=== PATIENT | male | born 1940 ===

== ENCOUNTER 2024-08-16 16:19 | Inpatient (IN) | payer MEDICARE ==
[~2024-08-16] VITALS: Ht 170.2 cm; Wt 89.9 kg
[2024-08-16] MEDS: IV NS 1000 ML 1,000 ML IV ONE (16:45)
[2024-08-16] MEDS ORDERED: SERT25TA PO (16:48)
[2024-08-16] MEDS ORDERED: CLOP75TA15 PO (16:48)
[2024-08-16] MEDS ORDERED: CRAN1CAP5 PO (16:48)
[2024-08-16] MEDS ORDERED: FURO-151 PO (16:48)
[2024-08-16] MEDS ORDERED: MELA5TAB2 PO (16:48)
[2024-08-16] MEDS ORDERED: METO-356 PO (16:48)
[2024-08-16] MEDS ORDERED: APIX2.5T PO (16:48)
[2024-08-16] MEDS ORDERED: CHOL10005 PO (16:48)
[2024-08-16] MEDS ORDERED: ALLO100T56 PO (16:48)
[2024-08-16] MEDS ORDERED: LOSA25TA27 PO (16:48)
[2024-08-16 17:06] LABS: BASOPHILS % (AUTO) 0.5 % (0.0-2.0); EOSINOPHILS # (AUTO) 0.1 K/uL (0.0-0.7); EOSINOPHILS % (AUTO) 0.9 % (0.0-7.0); HEMATOCRIT 40.6 % (36.7-47.1); LYMPHOCYTES # (AUTO) 1.7 K/uL (0.8-4.8); LYMPHOCYTES % (AUTO) 25.3 % (20.5-51.5); MEAN CORPUSCULAR HEMOGLOBIN 31.5 uug (23.8-33.4); MEAN CORPUSCULAR HGB CONC 32 g/dL (32.5-36.3); MEAN CORPUSCULAR VOLUME 98.1 fL (73.0-96.2); MONOCYTES % (AUTO) 15.5 % (0.0-11.0); NEUTROPHILS # (AUTO) 3.9 K/uL (1.8-8.9); NEUTROPHILS % (AUTO) 57.8 % (38.5-71.5); PLATELET COUNT (AUTO) 170 K/uL (152-348); RED BLOOD CELL COUNT(AUTO) 4.14 MIL/uL (4.06-5.63); RED CELL DISTRIBUTION WIDTH 15.3 % (12.1-16.2); WHITE BLOOD COUNT (AUTO) 6.7 K/uL (3.6-10.2)
[2024-08-16 17:09] LABS: DIFFERENTIAL COMMENT 1
[2024-08-16 17:10] LABS: BASOPHILS % (MANUAL) 1 % (0-2); EOSINOPHILS % (MANUAL) 1 % (0-8); LYMPHOCYTES % (MANUAL) 25 % (20-40); MONOCYTES % (MANUAL) 13 % (2-10); NEUTROPHILS % (MANUAL) 60 % (42-75)
[2024-08-16 17:15] LABS: CALCIUM 8.9 mg/dL (8.5-10.1); CARBON DIOXIDE 33 mmol/L (21-32); CHLORIDE 108 mmol/L (98-107); CREATININE 1.3 mg/dL (0.6-1.3); GLUCOSE 97 mg/dL (74-106); POTASSIUM 3.6 mmol/L (3.5-5.1); SODIUM SERUM 149 mmol/L (136-145); UREA NITROGEN, BLOOD 27 mg/dL (7-18)
[2024-08-16 17:26] LABS: ALANINE AMINOTRANSFERASE 16 U/L (16-63); ALBUMIN 3.2 g/dL (3.4-5.0); ALKALINE PHOSPHATASE 94 U/L (50-136); ASPARTATE AMINOTRANSFERASE 23 U/L (15-37); BILIRUBIN,DIRECT 0.7 mg/dL (0.0-0.2); BILIRUBIN,TOTAL 1.2 mg/dL (0.2-1.0); NT-PRO BNP 8293 pg/mL (0-125); TOTAL PROTEIN, SERUM 7.2 g/dL (6.4-8.2)
[2024-08-16 17:41] LABS: ABG BASE EXCESS 4.2 mmol/L (-2.0-3.0); ABG HCO3 30.7 mmol/L (21.0-28.0); ABG PCO2 53.8 mmHg (35.0-48.0); ABG PH 7.374 (7.350-7.450); ABG PO2 89.6 mmHg (83.0-108.0); ABG SITE LEFT BRACHIAL; ABG TOTAL HEMOGLOBIN 13.8 G/dL (13.5-17.5); AaDO2 96.5 mmHg; COHb 1.1 % (0.5-1.5); MetHb 0.2 % (0.0-1.5); O2Hb 95.5 % (94.0-98.0)
[2024-08-16 18:14] LABS: *BILIRUBIN,URIN NEGATIVE (NEGATIVE); *CLARITY,URINE CLEAR (CLEAR); *COLOR,URINE YELLOW (YELLOW); *KETONES,URINE NEGATIVE (NEGATIVE); *PROTEIN,URINE 1+ (NEGATIVE); LEUKOCYTE ESTERASE ,URINE NEGATIVE (NEGATIVE); NITRITE, URINE NEGATIVE (NEGATIVE); PH,URINE 5.5 (5.0-8.0); UGLUCOSE NEGATIVE (NEGATIVE)
[2024-08-16 18:15] LABS: *BLOOD, URINE NEGATIVE (NEGATIVE)
[2024-08-16 18:16] LABS: RBC,URINE 0-3 /HPF (0-3); WBC,URINE 0-3 /HPF (0-3)
[2024-08-16 18:22] LABS: *AMPHETAMINE, URINE NEGATIVE (NEGATIVE); *BARBITURATE, URINE NEGATIVE (NEGATIVE); *BENZODIAZEPINE, URINE NEGATIVE (NEGATIVE); *CANNABINOID, URINE NEGATIVE (NEGATIVE); *COCCAINE, URINE NEGATIVE (NEGATIVE); *OPIATE, URINE NEGATIVE (NEGATIVE); *PHENCYCLIDINE SCREEN,URINE NEGATIVE (NEGATIVE); FENTANYL, URINE NEGATIVE (NEGATIVE)
[2024-08-16] MEDS ORDERED: ASPIRIN 81 MG TAB.CHEW PO ONE (18:30)
[2024-08-16] MEDS ORDERED: ASPIRIN 300 MG RECTAL SUPP RC ONE ×2 (18:57→18:58)
[2024-08-16] MEDS: ASPIRIN 300 MG RECTAL SUPP RC ONE (19:13)
[2024-08-16] MEDS ORDERED: ACETAMINOPHEN 325 MG TABLET PO PRN (19:45)
[2024-08-16] MEDS ORDERED: ONDANSETRON 4 MG/2 ML VIAL IV PRN (19:45)
[2024-08-16 20:00] VITALS: BP 131/67; TEMP 96.9; O2SAT 95
[2024-08-16] MEDS: ENOXAPARIN SODIUM 40 MG/0.4 ML DISP.SYRIN SQ SCH (21:41)
[2024-08-16] MEDS: FUROSEMIDE 40 MG/4 ML VIAL IV SCH (21:42)
[2024-08-16 21:55] VITALS: BP 131/67; TEMP 96.9; O2SAT 95
[2024-08-17] VITALS (7 sets, daily range): BP systolic 95–150; BP diastolic 59–89; TEMP 96.8–98.4; O2SAT 95–98
[2024-08-17 06:25] LABS: BASOPHILS # (AUTO) 0.1 K/UL (0.0-0.2); BASOPHILS % (AUTO) 0.8 % (0.0-2.0); EOSINOPHILS # (AUTO) 0.1 K/uL (0.0-0.7); EOSINOPHILS % (AUTO) 1.5 % (0.0-7.0); HEMATOCRIT 42.8 % (36.7-47.1); HEMOGLOBIN 13.6 g/dL (12.5-16.3); LYMPHOCYTES # (AUTO) 1.6 K/uL (0.8-4.8); LYMPHOCYTES % (AUTO) 25.8 % (20.5-51.5); MEAN CORPUSCULAR HEMOGLOBIN 31.4 uug (23.8-33.4); MEAN CORPUSCULAR HGB CONC 32 g/dL (32.5-36.3); MEAN CORPUSCULAR VOLUME 98.9 fL (73.0-96.2); MONOCYTES # (AUTO) 0.9 K/uL (0.1-1.30); MONOCYTES % (AUTO) 15.1 % (0.0-11.0); NEUTROPHILS # (AUTO) 3.4 K/uL (1.8-8.9); NEUTROPHILS % (AUTO) 56.8 % (38.5-71.5); PLATELET COUNT (AUTO) 163 K/uL (152-348); RED BLOOD CELL COUNT(AUTO) 4.32 MIL/uL (4.06-5.63); RED CELL DISTRIBUTION WIDTH 15.5 % (12.1-16.2); WHITE BLOOD COUNT (AUTO) 6.1 K/uL (3.6-10.2)
[2024-08-17 07:05] LABS: DIFFERENTIAL COMMENT 1
[2024-08-17 07:06] LABS: CALCIUM 8.7 mg/dL (8.5-10.1); CARBON DIOXIDE 33 mmol/L (21-32); CHLORIDE 110 mmol/L (98-107); CREATININE 1.1 mg/dL (0.6-1.3); GLUCOSE 86 mg/dL (74-106); MAGNESIUM 2.4 mg/dL (1.8-2.4); PHOSPHOROUS 4.4 mg/dL (2.5-4.9); POTASSIUM 3.5 mmol/L (3.5-5.1); SODIUM SERUM 149 mmol/L (136-145); UREA NITROGEN, BLOOD 24 mg/dL (7-18)
[2024-08-17] MEDS: PANTOPRAZOLE SODIUM 40 MG VIAL IV SCH (08:54)
[2024-08-17] MEDS: POTASSIUM CHLORIDE 50 ML IV SCH (08:57)
[2024-08-17] MEDS ORDERED: CHOL-35 PO (09:36)
[2024-08-17] MEDS ORDERED: MELA5TAB PO (09:36)
[2024-08-17 10:05] LABS: EOSINOPHILS % (MANUAL) 1 % (0-8); LYMPHOCYTES % (MANUAL) 21 % (20-40); MONOCYTES % (MANUAL) 18 % (2-10); NEUTROPHILS % (MANUAL) 60 % (42-75); PLATELET ESTIMATE ADEQUATE
[2024-08-17 10:06] LABS: ANISOCYTOSIS 1+
[2024-08-17] MEDS ORDERED: ACETAMINOPHEN 650 MG SUPP.RECT RC PRN (15:00)
[2024-08-17] MEDS ORDERED: MORPHINE SULFATE 2 MG/1 ML DISP.SYRIN IV PRN (15:00)
[2024-08-17] MEDS ORDERED: hydrALAZINE HCL 25 MG TABLET PO PRN (15:00)
[2024-08-17] MEDS ORDERED: ENALAPRILAT DIHYDRATE 1.25 MG/1 ML VIAL IV PRN (15:00)
[2024-08-17] MEDS: POTASSIUM CHLORIDE 20 MEQ in IV D5 1/2 NS 1000 ML 1,000 ML IV PRN (15:35)
[2024-08-17] MEDS ORDERED: APIXABAN 2.5 MG TABLET PO SCH ×2 (17:00→21:00)
[2024-08-17] MEDS ORDERED: METOPROLOL SUCCINATE XL 25 MG TAB.SR.24H PO SCH ×2 (17:00→21:00)
[2024-08-17] MEDS ORDERED: MELATONIN 3 MG TABLET PO SCH (21:00)
[2024-08-17] MEDS ORDERED: Medication Not On Formulary EA (Melatonin 5 MG) PO SCH (21:00)
[2024-08-17] MEDS: REMEDY ESSENTIAL ZINC PASTE 113 GM TP PRN (21:45)
[2024-08-17] MEDS: ENOXAPARIN SODIUM 100 MG/ML DISP.SYRIN SQ SCH (21:50)
[2024-08-18] VITALS (7 sets, daily range): BP systolic 100–135; BP diastolic 59–96; TEMP 97.6–98.4; O2SAT 94–99
[2024-08-18 06:48] LABS: BASOPHILS % (AUTO) 0.6 % (0.0-2.0); DIFFERENTIAL COMMENT 1; EOSINOPHILS # (AUTO) 0.1 K/uL (0.0-0.7); EOSINOPHILS % (AUTO) 0.9 % (0.0-7.0); HEMATOCRIT 40.4 % (36.7-47.1); HEMOGLOBIN 12.9 g/dL (12.5-16.3); LYMPHOCYTES # (AUTO) 1.7 K/uL (0.8-4.8); LYMPHOCYTES % (AUTO) 26.5 % (20.5-51.5); MEAN CORPUSCULAR HEMOGLOBIN 31.5 uug (23.8-33.4); MEAN CORPUSCULAR HGB CONC 32 g/dL (32.5-36.3); MEAN CORPUSCULAR VOLUME 98.6 fL (73.0-96.2); MONOCYTES % (AUTO) 16.3 % (0.0-11.0); NEUTROPHILS # (AUTO) 3.6 K/uL (1.8-8.9); NEUTROPHILS % (AUTO) 55.7 % (38.5-71.5); PLATELET COUNT (AUTO) 165 K/uL (152-348); RED BLOOD CELL COUNT(AUTO) 4.09 MIL/uL (4.06-5.63); RED CELL DISTRIBUTION WIDTH 15.4 % (12.1-16.2); WHITE BLOOD COUNT (AUTO) 6.4 K/uL (3.6-10.2)
[2024-08-18 06:49] LABS: NEUTROPHILS % (MANUAL) 0 % (42-75)
[2024-08-18] MEDS ORDERED: PANTOPRAZOLE SODIUM 40 MG TABLET.DR PO SCH (07:00)
[2024-08-18 07:07] LABS: IRON, SERUM 27 ug/dL (50-175)
[2024-08-18 07:17] LABS: ALANINE AMINOTRANSFERASE 15 U/L (16-63); ALKALINE PHOSPHATASE 82 U/L (50-136); ASPARTATE AMINOTRANSFERASE 18 U/L (15-37); BILIRUBIN,TOTAL 1.6 mg/dL (0.2-1.0); CALCIUM 8.8 mg/dL (8.5-10.1); CARBON DIOXIDE 34 mmol/L (21-32); CHLORIDE 109 mmol/L (98-107); CREATININE 1.1 mg/dL (0.6-1.3); GLUCOSE 99 mg/dL (74-106); MAGNESIUM 2.4 mg/dL (1.8-2.4); PHOSPHOROUS 3.4 mg/dL (2.5-4.9); SODIUM SERUM 149 mmol/L (136-145); UREA NITROGEN, BLOOD 20 mg/dL (7-18)
[2024-08-18 07:29] LABS: THYROID STIMULATING HORMONE 2.564 mIU/mL (0.358-3.740)
[2024-08-18 08:06] LABS: URIC ACID 9.1 mg/dL (3.5-7.2)
[2024-08-18 08:11] LABS: CHOLESTEROL 155 mg/dL (<200); HDL CHOLESTEROL 50 mg/dL (40-60); TRIGLYCERIDES 51 MG/DL (30-150)
[2024-08-18] MEDS ORDERED: ARGININE/GLUTAMINE/CALCIUM BMB 1 EACH POWD.PACK PO SCH (09:00)
[2024-08-18] MEDS ORDERED: LOSARTAN POTASSIUM 25 MG TABLET PO SCH (09:00)
[2024-08-18] MEDS ORDERED: Medication Not On Formulary EA (Sertraline Hcl (Zoloft) 25 MG) PO SCH (09:00)
[2024-08-18] MEDS ORDERED: CLOPIDOGREL 75 MG TABLET PO SCH (09:00)
[2024-08-18] MEDS ORDERED: ALLOPURINOL 100 MG TABLET PO SCH (09:00)
[2024-08-18] MEDS ORDERED: CHOLECALCIFEROL 1,000 UNIT TABLET PO SCH (09:00)
[2024-08-18] MEDS: PANTOPRAZOLE SODIUM 40 MG VIAL IV SCH (09:05)
[2024-08-18] MEDS: IV D5W 1000ML 1,000 ML IV PRN (09:06)
[2024-08-18] MEDS: METOPROLOL SUCCINATE XL 50 MG TAB.SR.24H PO SCH (13:19)
[2024-08-18] MEDS ORDERED: SERTRALINE HCL 50 MG TABLET PO SCH (14:00)
[2024-08-19] VITALS (9 sets, daily range): BP systolic 97–124; BP diastolic 55–81; TEMP 97.5–98.5; O2SAT 95–97
[2024-08-19] MEDS: CYANOCOBALAMIN 1000 MCG/ML VIAL IM SCH (08:49)
[2024-08-19] MEDS: APIXABAN 5 MG TABLET PO SCH (08:51)
[2024-08-19 08:59] LABS: CALCIUM 8.4 mg/dL (8.5-10.1); CARBON DIOXIDE 38 mmol/L (21-32); CHLORIDE 102 mmol/L (98-107); CREATININE 1.1 mg/dL (0.6-1.3); GLUCOSE 110 mg/dL (74-106); POTASSIUM 3.5 mmol/L (3.5-5.1); SODIUM SERUM 141 mmol/L (136-145); UREA NITROGEN, BLOOD 19 mg/dL (7-18)
[2024-08-20 00:07] VITALS: BP 104/69; TEMP 97; O2SAT 97
[2024-08-20 00:35] VITALS: O2SAT 97
[2024-08-20] MEDS: PANTOPRAZOLE SODIUM 40 MG TABLET.DR PO SCH (06:24)
[2024-08-20 06:41] VITALS: BP 118/62; TEMP 98.3; O2SAT 96
[2024-08-20 07:14] VITALS: BP 119/64; TEMP 98.3; O2SAT 95
[2024-08-20] MEDS: FUROSEMIDE 40 MG TABLET PO SCH (08:40)
[2024-08-20 11:11] VITALS: BP 108/58; TEMP 98.5; O2SAT 94
[2024-08-20] MEDS ORDERED: METO-357 PO (13:55)
[2024-08-20] MEDS ORDERED: CYAN10006 IM (13:55)
[2024-08-20] MEDS ORDERED: PANT40TA49 PO (13:55)
[2024-08-20] MEDS ORDERED: DONE10TA11 PO (13:56)
[2024-08-20 16:17] VITALS: BP 110/71; TEMP 98.2; O2SAT 94
== END 2024-08-20 18:05 | DRG 280 ==
LOC: ER 16:19 → TELE3 19:57
PROVIDERS: ATTEND Internal Medicine
PROC: 05HB33Z Insertion of Infusion Device into Right Basilic Vein, Percutaneous Approach (ICD-10-PCS; principal; 2024-08-17)
DX: I11.0 Hypertensive heart disease with heart failure (principal); G93.41 Metabolic encephalopathy; I21.A1 Myocardial infarction type 2; I50.23 Acute on chronic systolic (congestive) heart failure; J96.02 Acute respiratory failure with hypercapnia; N17.0 Acute kidney failure with tubular necrosis; I48.20 Chronic atrial fibrillation, unspecified; D68.59 Other primary thrombophilia; E87.29 Other acidosis; E87.0 Hyperosmolality and hypernatremia; L03.115 Cellulitis of right lower limb; R17 Unspecified jaundice; E66.9 Obesity, unspecified; Z88.0 Allergy status to penicillin; H57.9 Unspecified disorder of eye and adnexa; I08.3 Combined rheumatic disorders of mitral, aortic and tricuspid valves; M15.9 Polyosteoarthritis, unspecified; J44.9 Chronic obstructive pulmonary disease, unspecified; I71.21 Aneurysm of the ascending aorta, without rupture; I25.5 Ischemic cardiomyopathy; R59.0 Localized enlarged lymph nodes; K76.9 Liver disease, unspecified; I27.20 Pulmonary hypertension, unspecified; D75.89 Other specified diseases of blood and blood-forming organs; E53.8 Deficiency of other specified B group vitamins; E88.09 Other disorders of plasma-protein metabolism, not elsewhere classified; Z74.09 Other reduced mobility; Z87.891 Personal history of nicotine dependence; Z79.899 Other long term (current) drug therapy; Z79.01 Long term (current) use of anticoagulants; Z68.33 Body mass index [BMI] 33.0-33.9, adult; H05.20 Unspecified exophthalmos; S90.31XA Contusion of right foot, initial encounter; X58.XXXA Exposure to other specified factors, initial encounter; Y92.099 Unspecified place in other non-institutional residence as the place of occurrence of the external cause; I49.3 Ventricular premature depolarization; I27.29 Other secondary pulmonary hypertension; Z79.02 Long term (current) use of antithrombotics/antiplatelets; Z87.440 Personal history of urinary (tract) infections; R60.0 Localized edema
CPT/HCPCS: 36415; 36600; 70450; 71045; 71250; 73620; 82105; 82803; 83550; 83605; 83735; 84100; 84153; 84443; 84484; 84550; 85025; 85730; 87040; 87086; 93005; 93307; 94760; A4606; A4663; C1758; G0378; J1650; J1940; J2470; J3420; J3480; J7040; J7070